=== PATIENT | female | born 1985 | race Caucasian/White ===

== ENCOUNTER 2016-12-05 13:55 | Emergency (ER) | payer OTHER ==
[~2016-12-05] VITALS: Ht 165.1 cm; Wt 69.9 kg
[~2016-12-05 13:55] MED LIST: AMO500 PO; IBUP800T25 PO; ONDA4TAB35 PO; SODI44SP11 NS
[2016-12-05 14:16] VITALS: Ht 165.1 cm; Wt 69.9 kg
[2016-12-05] MEDS ORDERED: ONDANSETRON (ODT) 4 MG TAB ODT STA (15:56)
[2016-12-05 16:55] LABS: ADD UMIC NO; URINE BILIRUBIN (Dip) NEGATIVE (NEGATIVE); URINE BLOOD (Dip) NEGATIVE (NEGATIVE); URINE COLOR LT. YELLOW (YELLOW); URINE GLUCOSE (Dip) NEGATIVE (NEGATIVE); URINE KETONES (Dip) 15 (NEGATIVE); URINE LEUKOCYTE ESTERASE (Dip) NEGATIVE (NEGATIVE); URINE NITRITE (Dip) NEGATIVE (NEGATIVE); URINE TOTAL PROTEIN (Dip) NEGATIVE (NEGATIVE); URINE UROBILINOGEN (Dip) 0.2 E.U./dL (0.1-1.0)
[2016-12-05] MEDS ORDERED: FAMO-18 PO (17:10)
[2016-12-05] MEDS ORDERED: ONDA4TAB14 PO (17:10)
--- NOTE | 2016-12-05 17:23 | ERD ---
ER Documentation Chief Complaint Date/Time DATE: 12/05/16 TIME: 17:20 Chief Complaint NAUSEA STARTING YESTERDAY AM, NEGATIVE TEST HPI This is a 31-year-old female presenting to the emergency department complaining of nausea that started yesterday. Patient states that she had no episodes of vomiting or diarrhea. She denies any abdominal pain, chest pain, cough. Patient has not taken any medications. She does not know what makes it better or worse. Patient states that this has happened before and had given her medication and she felt better. Patient denies any medical problems ROS All systems reviewed and are negative except as per history of present illness. Medications Home Meds Active Scripts Famotidine* (Pepcid*) 20 Mg Tablet, 20 MG PO DAILY, #15 TAB Prov:TEJAS GORDON PA-C 12/05/16 Ondansetron (Ondansetron Odt) 4 Mg Tab.rapdis, 4 MG PO Q6H Y for NAUSEA AND/OR VOMITING, #10 TAB Prov:TEJAS GORDON PA-C 12/05/16 Ondansetron Hcl* (Zofran* ODT) 4 mg -ODT Tab.disper, 4 MG PO Q6 Y for NAUSEA AND /OR VOMITING, #10 TAB Prov:JAMES DWYER I. HEALTH FACILITIES SURVEYOR 10/08/15 Sodium Chloride (Saline Nasal [place]) 45 Ml [place], 2 SPRAY NS Q2H, #1 BOT Prov:BARBARA LICEA HEALTH FACILITIES SURVEYOR 09/29/15 Ibuprofen* (Motrin*) 800 Mg Tab, 800 MG PO Q8 Y for PAIN AND OR ELEVATED TEMP, # 30 TAB Prov:BARBARA LICEA HEALTH FACILITIES SURVEYOR 09/29/15 Amoxicillin* (Amoxicillin*) 500 Mg Cap, 500 MG PO TID for 7 Days, CAP Prov:JESSICA DOVE DO 09/24/15 Allergies Allergies: Coded Allergies: No Known Allergy (Unverified , 10/08/15) PMhx/Soc History of Surgery: No Anesthesia Reaction: No Hx Neurological Disorder: No Hx Respiratory Disorders: No Hx Cardiac Disorders: No Hx Psychiatric Problems: No Hx Miscellaneous Medical Probl: No Hx Alcohol Use: No Hx Substance Use: No Hx Tobacco Use: No Physical Exam Vitals Vital Signs Date Time Temp Pulse Resp B/P Pulse Ox O2 Delivery O2 Flow Rate FiO2 3/2/17 14:16 99.5 97 16 133/64 99 Physical Exam GENERAL: well-developed/well-nourished, in no apparent distress, non-toxic appearing HENT: NC/AT, moist mucous membranes EYES: Conjunctiva normal NECK: Supple, no lymphadenopathy PULM: CTA bilaterally, no rales, rhonchi, or wheezing heard CV: Normal S1S2, RRR, good capillary refill GI: Soft, non-distended, non-tender to palpation Normal bowel sounds, no masses or organomegaly felt on exam No gross peritonitis, no bruits Negative Rovsing, negative Vazquez, negative McBurney's point, Negative CVAT BACK: No masses EXT: No clubbing, cyanosis, or edema NEURO: Alert and Orientated SKIN: Intact, normal turgor PSYCH: Normal mood and mentation Results 24 hrs Laboratory Tests Test 12/05/16 16:11 Urine Bilirubin NEGATIVE Urine Clarity CLEAR Urine Color LT. YELLOW Urine Glucose NEGATIVE% Urine Hemoglobin NEGATIVE Urine Ketones 15 Urine Leukocyte Esterase NEGATIVE Urine Nitrite NEGATIVE Urine Specific [place] <=1.005 Urine Total Protein NEGATIVE Urine Urobilinogen 0.2 E.U./dL Urine pH 6.0 Current Medications Medications (Trade) Dose Ordered Sig/William Route PRN Reason Start Time Stop Time Status Last Admin Dose Admin Ondansetron HCl (Zofran Odt) 4 mg ONCE STAT ODT 12/05/16 15:56 12/05/16 15:58 DC 12/05/16 16:09 Procedures/MDM This is a well-appearing 31-year-old female presenting to the emergency room complaining of nausea since yesterday. Patient vital signs are stable, she looks well, she does not seem to be in any distress. She is speaking clearly and her abdominal exam is unremarkable. A urinalysis was done in the ED and was unremarkable for any infection. Urine test is negative. Patient was given Zofran in the ED and passed the fluid challenge test. My differentials include but not limited to gastritis, gastritis, anxiety, and other nonspecific cause the nausea. Prescription for Zofran and Pepcid was provided. I discussed with patient to follow-up with primary care physician. Discussed return to the ER for any emergency signs or symptoms. She understands and agrees with this plan Departure Diagnosis: Primary Impression: Nausea Condition: Stable Patient Instructions: Nausea Additional Instructions: FOLLOW UP WITH YOUR PRIMARY CARE PHYSICIAN TOMORROW.Return to this facility if you are not improving as expected. Take all medicines as directed. Return to this facility if you are not improving as expected. TEJAS GORDON PA-C Dec 05, 2016 17:23
== END 2016-12-05 17:35 | disposition home or self-care (01) ==
LOC: FTE 13:55
DX: R11.0 Nausea (principal)
CPT/HCPCS: 81003; Z7502; Z7610; 99283

== ENCOUNTER 2018-03-05 07:47 | Emergency (ER) | END 2018-03-05 10:30 | disposition home or self-care (01) ==

== ENCOUNTER 2018-11-30 19:33 | Emergency (ER) | payer OTHER ==
[~2018-11-30] VITALS: Ht 266.7 cm; Wt 74.0 kg
[~2018-11-30 19:33] MED LIST changes: -AMO500 PO; +AMOX500C2 PO; +FAMO-96 PO; -IBUP800T25 PO; +IBUP800T48 PO; +NAPR-985 PO; +ONDA4TAB14 PO
[2018-11-30 20:12] VITALS: Ht 266.7 cm; Wt 74.0 kg
[2018-12-01] MEDS ORDERED: ACETAMINOPHEN 325 MG TAB PO ONE (00:30)
[2018-12-01] MEDS ORDERED: IBUP-1542 PO (02:32)
--- NOTE | 2018-12-01 02:48 | ERD ---
ER Documentation Chief Complaint Chief Complaint rolled left ankle today around 12pm +pain and swelling. HPI 33-year-old female presents to the ED complaining of left ankle pain status post twisting mechanism that occurred today at 12. She rates the pain moderate in severity. Admits to swelling. States ibuprofen was taken at 730 ROS All systems reviewed and are negative except as per history of present illness. Medications Home Meds Active Scripts Ibuprofen* (Motrin*) 600 Mg Tab, 600 MG PO Q6H PRN for PAIN AND OR ELEVATED TEMP, #30 TAB Prov:TEJAS GORDON PA-C 12/01/18 Naproxen* (Naprosyn*) 500 Mg Tablet, 500 MG PO BID PRN for PAIN AND/OR INFLAMMATION, #30 TAB Prov:GALI CARBAJAL PA-C 03/05/18 Famotidine* (Pepcid*) 20 Mg Tablet, 20 MG PO DAILY, #15 TAB Prov:TEJAS GORDON PA-C 12/05/16 Ondansetron (Ondansetron Odt) 4 Mg Tab.rapdis, 4 MG PO Q6H PRN for NAUSEA AND/OR VOMITING, #10 TAB Prov:TEJAS GORDON PA-C 12/05/16 Ondansetron Hcl* (Zofran* ODT) 4 mg -ODT Tab.disper, 4 MG PO Q6 PRN for NAUSEA AND/OR VOMITING, #10 TAB Prov:JAMES DWYER NP 10/08/15 Sodium Chloride (Saline Nasal [place]) 45 Ml [place], 2 SPRAY NS Q2H, #1 BOT Prov:BARBARA LICEA NP 09/29/15 Ibuprofen* (Motrin*) 800 Mg Tab, 800 MG PO Q8 PRN for PAIN AND OR ELEVATED TEMP, #30 TAB Prov:BARBARA LICEA EPIDEMIOLOGY INTERN 09/29/15 Amoxicillin* (Amoxicillin*) 500 Mg Cap, 500 MG PO TID for 7 Days, CAP Prov:JESSICA DOVE DO 09/24/15 Allergies Allergies: Coded Allergies: No Known Allergy (Unverified , 11/30/18) PMhx/Soc Medical and Surgical Hx: pt denies Medical Hx, pt denies Surgical Hx History of Surgery: No Anesthesia Reaction: No Hx Neurological Disorder: No Hx Respiratory Disorders: No Hx Cardiac Disorders: No Hx Psychiatric Problems: No Hx Miscellaneous Medical Probl: No Hx Alcohol Use: Yes (SOCIALLY) Hx Substance Use: No Hx Tobacco Use: No Smoking Status: Never smoker Physical Exam Vitals Vital Signs Date Temp Pulse Resp B/P (MAP) Pulse Ox O2 O2 Flow FiO2 Time Delivery Rate 11/30/18 98.3 95 18 129/74 97 20:12 (92) Physical Exam Const: No acute distress Head: Atraumatic Eyes: Normal Conjunctiva ENT: Normal External Ears, Nose and Mouth. Neck: Full range of motion. No meningismus. Resp: Clear to auscultation bilaterally Cardio: Regular rate and rhythm, no murmurs Abd: Soft, non tender, non distended. Normal bowel sounds Skin: No petechiae or rashes Back: No midline or flank tenderness Ext: 10 palpation over the left dorsal foot and lateral malleolus Neur: Awake and alert Psych: Normal Mood and Affect Results 24 hrs Current Medications Medications Dose Sig/William Start Time Status Last (Trade) Ordered Route PRN Stop Time Admin Dose Reason Admin 650 mg ONCE ONCE 12/01/18 DC 12/01/18 Acetaminophen PO 00:30 00:16 (Tylenol 12/01/18 00:31 Tab) Procedures/MDM This is a 33-year-old female presenting to the ED with left foot and ankle pain status post twisting mechanism injury that occurred today. Patient likely has a sprain. No suspicion for fracture dislocation on x-ray. Patient was placed in [place] bandage and given crutches. She is nervous intact be discharged home. Return precautions given she understands agrees this plan. Departure Diagnosis: Primary Impression: Ankle injury Additional Impression: Ankle pain Condition: Stable Patient Instructions: Treating Ankle Sprains, Sprain, Ankle, With X-Ray Additional Instructions: FOLLOW UP WITH YOUR PRIMARY CARE PHYSICIAN TOMORROW.Return to this facility if you are not improving as expected. Take all medicines as directed. Return to this facility if you are not improving as expected. TEJAS GORDON PA-C Dec 01, 2018 02:48
[2018-12-01 03:06] VITALS: BP 143/75; PULSE 68; RESP 18
== END 2018-12-01 03:08 | disposition home or self-care (01) ==
LOC: FTE 19:33
DX: S99.912A Unspecified injury of left ankle, initial encounter (principal); X50.1XXA Overexertion from prolonged static or awkward postures, initial encounter; Y92.9 Unspecified place or not applicable
CPT/HCPCS: 73610; 73630; Z7502; Z7610